=== PATIENT | male | born 1975 | race Two or more races ===

== ENCOUNTER 2020-09-29 09:17 | Emergency (ER) | payer MEDICAID ==
[~2020-09-29] VITALS: Ht 185.4 cm; Wt 75.9 kg
[~2020-09-29 09:17] MED LIST: HYDR-4383 PO
[2020-09-29] MEDS ORDERED: morphine 10mg/ml inj. IV ONE (10:15)
[2020-09-29] MEDS ORDERED: ampicillin/sulbac 3gm/NS 100ml 100 ML IV ONE (10:18)
--- NOTE | 2020-09-29 11:00 | NUR ---
report called to kaitlyn ng at [facility] sbar pt condition ,waiting on covid swab ,call back with covid results.
[2020-09-29 11:13] LABS: BASOPHILS # (AUTO) 0.1 X10'3 (0-0.2); BASOPHILS % (AUTO) 0.6 % (0-1); EOSINOPHILS # (AUTO) 0.2 X10'3 (0-0.9); EOSINOPHILS % (AUTO) 1.8 % (0-6); HEMATOCRIT 41.2 % (42.0-52.0); HEMOGLOBIN 13.7 g/dl (14.0-17.9); LYMPHOCYTES # (AUTO) 2.4 X10'3 (1.1-4.8); LYMPHOCYTES % (AUTO) 21.6 % (21-51); MEAN CORPUSCULAR HEMOGLOBIN 29.3 PG (27.0-31.0); MEAN CORPUSCULAR HGB CONC 33.3 g/dL (33.0-36.5); MEAN PLATELET VOLUME 7.1 FL (7.4-10.4); MONOCYTES # (AUTO) 0.9 X10'3 (0-0.9); MONOCYTES % (AUTO) 8.2 % (2-12); NEUTROPHILS # (AUTO) 7.7 X10'3 (1.8-7.7); NEUTROPHILS % (AUTO) 67.8 % (42-75); PLATELET COUNT 345 X10'3 (140-440); RED BLOOD COUNT 4.69 X10'6 (4.70-6.10); RED CELL DISTRIBUTION WIDTH 14.2 % (11.5-14.5); WHITE BLOOD COUNT 11.3 X10'3 (4.5-11.0)
--- NOTE | 2020-09-29 11:22 | NUR ---
notified dr blackburn for pt pain level after morphine inj 6 mg iv once ,pain 9/ ,new order to give dilaudid 1 mg iv onces and md is going to order.
[2020-09-29 11:25] LABS: ALBUMIN 3.3 G/DL (3.4-5.0); ANION GAP 9 (8-16); BLOOD UREA NITROGEN 16 MG/DL (7-18); CALCIUM 8.7 MG/DL (8.5-10.1); CHLORIDE 107 MMOL/L (99-107); GLUCOSE 106 MG/DL (70-104); POTASSIUM 3.9 MMOL/L (3.5-5.1); SODIUM 140 MMOL/L (135-145); TOTAL CARBON DIOXIDE 24.3 MMOL/L (24-32); eGFR 81 ML/MIN
[2020-09-29] MEDS ORDERED: HYDROmorphone 1 mg/ml syringe IV ONE (11:25)
[2020-09-29 11:54] VITALS: BP 134/76
== END 2020-09-29 11:58 | disposition short-term general hospital (02) ==
LOC: ER 09:17
DX: S02.69XB Fracture of mandible of other specified site, initial encounter for open fracture (principal); Z20.828 Contact with and (suspected) exposure to other viral communicable diseases; F12.90 Cannabis use, unspecified, uncomplicated; F15.90 Other stimulant use, unspecified, uncomplicated; F17.200 Nicotine dependence, unspecified, uncomplicated; Z90.49 Acquired absence of other specified parts of digestive tract; Z59.0 Homelessness; Z79.899 Other long term (current) drug therapy; W17.89XA Other fall from one level to another, initial encounter; Y93.31 Activity, mountain climbing, rock climbing and wall climbing; Y92.828 Other wilderness area as the place of occurrence of the external cause; Y99.8 Other external cause status
CPT/HCPCS: 36415; 70486; 71045; 80048; 85025; 85610; 87635; 96365; 96375; 99285; C9803; J1170; J2270; J0295

== ENCOUNTER 2025-06-10 07:20 | Emergency (ER) | payer MEDICAID ==
[~2025-06-10] VITALS: Ht 185.4 cm; Wt 75.0 kg
--- NOTE | 2025-06-10 08:43 | Physician Documentation ---
History of Present Illness ~ Chief Complaint: Wound Stated Complaint: L LEG SWELLING Time Seen by MD: 08:42 Primary Medical Doctor: Dr. JO Mode of Arrival: POV HPI 50 yr old male with meth use hx presents to the emergency department for signs of infection to a left lower leg. He reports that he scratches like a couple of days ago in some blackberry bushes, and has had spreading redness since. Notes that the leg is very painful. No fevers or chills. Tetanus within 5 years?: Yes Medication Reconciliation Allergies: Coded Allergies: No Known Allergies (Unverified , 12/16/09) Scheduled Cephalexin*Monohydrate* (Keflex*), 1 CAP PO QID Sulfamethoxazole/Trimethoprim (Bactrim Ds Tablet), 1 TAB PO Q12H Discontinued Medications Hydrocodone/Acetaminophen ([place] 5-325 Tablet), 1-2 TABLET PO Q4H Discontinued Reason: patient no longer taking Past Medical History Past Medical History: No Pertinent History Past Surgical History: appendectomy, tonsillectomy Alcohol Use: None Drug Use: marijuana, methamphetamine Lives with: Family Lives In: Home Review of Systems ROS As stated above in the HPI, otherwise all systems are reviewed and negative. Physical Exam Vital Signs: Temperature: 97.7, Source: Temporal, Heart Rate: 106, Respiratory Rate: 18, BP: 116/73, Pulse Oximetry: 99, Weight: 75.000 Oxygen Flow Rate: 0 Physical Exam General: Alert, no apparent distress. Neck: Full range of motion. Respiratory: Lungs clear, no respiratory distress. Chest: No accessory muscle use. Cardiovascular: Regular rate and rhythm, no murmurs. Gastrointestinal: Soft, nontender, nondistended. Bowels sounds present. Extremities: Normal range of motion, no deformity. LLE with 2+ erythema with numerous open areas/scratches noted. Neurologic: Oriented x4. Psychiatric: Normal mood and affect. Skin: Normal color, warm and dry. No edema, no ecchymosis. Progress Results/Orders Results/Orders Orders - YAMILETH GILLESPIE [employer] * Iv Access / Saline Lock * (06/10/25 08:54) Electrocardiogram (06/10/25 08:54) Urinalysis, Cult If Indicated (06/10/25 08:54) Culture Blood (06/10/25 08:54) Dressing Orders (06/10/25 10:41) Wound Care Orders (06/10/25 10:41) Completed Orders - YAMILETH GILLESPIE [employer] Normal Saline 1000ml (0.9% Sodium Chlori (06/10/25 08:55) Morphine 4mg/Ml Inj. (Morphine Inj.) (06/10/25 08:55) Electrocardiogram (06/10/25 08:54) Cbc/Diff (06/10/25 08:54) MG (06/10/25 08:54) Procalcitonin (06/10/25 08:54) BMP (06/10/25 08:54) Lacticsepsis (06/10/25 08:54) Liver Panel (06/10/25 08:54) Ceftriaxone 2gm/D5w 50ml Bag (Rocephin 2 (06/10/25 10:40) Tetanus/Pertuss/Diph Acell/Pf (Boostrix (06/10/25 10:45) Bacitracin Ointment (Bacitracin Ointment (06/10/25 10:45) Medications Received in ER Medications (Trade) Dose Ordered Sig/Suhas Route PRN Reason Start Time Stop Time Status Last Admin Dose Admin Sodium Chloride 1,000 ml @ 1,000 mls/hr ONCE ONCE IV 06/10/25 08:55 06/10/25 09:54 DC 06/10/25 09:16 1,000 MLS/HR (morphine inj.) 4 mg ONCE ONCE IV 06/10/25 08:55 06/10/25 08:56 DC 06/10/25 09:17 4 MG Ceftriaxone Sodium/Dextrose 50 ml @ 100 mls/hr ONCE ONCE IV 06/10/25 10:40 06/10/25 11:11 DC 06/10/25 11:01 100 MLS/HR (bacitracin ointment) 1 applic ONCE ONCE TP 06/10/25 10:45 06/10/25 10:46 DC 06/10/25 11:01 1 APPLIC Vital Signs 06/10/25 06/10/25 07:24 07:41 Temp 97.7 Pulse 106 Resp 16 18 B/P (MAP) 116/73 Pulse Ox 99 O2 Flow Rate 0 Laboratory Tests Test 06/10/25 09:15 White Blood Count 14.1 H Red Blood Count 4.62 L Hemoglobin 13.8 L Hematocrit 40.9 L Mean Corpuscular Volume 88.5 Mean Corpuscular Hemoglobin 29.9 Mean Corpuscular Hemoglobin Concent 33.8 Red Cell Distribution Width 14.3 Platelet Count 313 Mean Platelet Volume 7.7 Neutrophils (%) (Auto) 78.6 H Lymphocytes (%) (Auto) 11.2 L Monocytes (%) (Auto) 8.6 Eosinophils (%) (Auto) 1.1 Basophils (%) (Auto) 0.5 Neutrophils # (Auto) 11.1 H Lymphocytes # (Auto) 1.6 Monocytes # (Auto) 1.2 H Eosinophils # (Auto) 0.2 Basophils # (Auto) 0.1 CBC Comment Sodium Level 139 Potassium Level 4.0 Chloride Level 103 Carbon Dioxide Level 28.2 Anion Gap 8 Blood Urea Nitrogen 13 Creatinine 0.82 Estimated GFR/1.73 m2 > 90 BUN/Creatinine Ratio 15.9 Glucose Level 104 Lactic Acid Level 0.6 Calcium Level 8.7 Magnesium Level 2.0 Total Bilirubin 0.4 Direct Bilirubin 0.1 Aspartate Amino Transf (AST/SGOT) 16 Alanine Aminotransferase (ALT/SGPT) 20 Alkaline Phosphatase 57 Total Protein 6.8 Albumin 3.0 L Globulin 3.8 Albumin/Globulin Ratio 0.8 L Procalcitonin 0.58 H Chemistry Comments EKG/XRAY/CT/US/VASC/MRI EKG : Additional Comment 0858 EKG interpreted to show RSR rate of 94. No ectopy No ST segment elevation. QTC 469 ms. Medical Decision Making Differential Dx:Considerations: Include: Abscess, Cellulitis, Dressing change, Healing wound Additional Comment NO Signs of sepsis. Was treated in the emergency department 2 g of ceftriaxone IV, hydrated with 1 L of normal saline, treated for pain. He is to return if worse, otherwise he is to take the Bactrim and Keflex as prescribed. Departure Time of Disposition: 10:39 Disposition: 01 HOME / SELF CARE / HOMELESS Impression: Primary Impression: Wound cellulitis Condition: Stable Discharge Instructions: Cellulitis, Adult, How to Change Your Wound Dressing Additional Instructions: Antibiotics as prescribed. Return if worse. Follow up with the primary care within the week Referrals: NO PRIMARY CARE PROVIDER (PCP) Prescriptions Cephalexin*Monohydrate* (Keflex*) 500 Mg Capsule 1 CAP PO QID for 7 Days, #28 CAP Prov: YAMILETH GILLESPIE NP 06/10/25 Sulfamethoxazole/Trimethoprim (Bactrim Ds Tablet) 800 Mg-160 Mg Tablet 1 TAB PO Q12H for 7 Days, #14 TAB Prov: YAMILETH GILLESPIE NP 06/10/25 Education Educated: Patient, Family Educated regarding: diagnosis, treatment, prognosis, need for follow up Signature Scribe Signature: x Attestation: The note accurately reflects work and decisions made by me.Yamileth Franklin NP 06/10/25 11:12 YAMILETH GILLESPIE NP Jun 10, 2025 08:43
--- NOTE | 2025-06-10 09:01 | ELECTROCARDIOGRAPH REPORT ---
[facility]– [place] Date: 2025-06-10 Test Time: 08:58:43 Pat Name: WILLIAM MACKEY Department: [facility]- Patient ID: [id number] Room: Gender: M [employer]: : 1975 Requested By: YAMILETH GILLESPIE Order Number: [id number] Reading MD: Dr. Jae Ramon Measurements Intervals [place] Rate: 94 P: 71 MD: 154 QRS: 90 QRSD: 100 T: 52 QT: 375 QTc: 469 Interpretive Statements Sinus rhythm Borderline right axis deviation Electronically Signed On 06-10-2025 9:40:[address] Jae Ramon Please click the below link to view image of tracing.
[2025-06-10] MEDS: normal saline 1000ml 1,000 ML IV ONE (09:16)
[2025-06-10] MEDS: morphine 4 MG/ML inj SYRINge IV ONE (09:17)
[2025-06-10 09:55] LABS: MEAN PLATELET VOLUME 7.7 FL (7.4-10.4); RED CELL DISTRIBUTION WIDTH 14.3 % (11.5-14.5)
[2025-06-10 10:16] LABS: CREATININE 0.82 MG/DL (0.60-1.10); TOTAL CARBON DIOXIDE 28.2 MMOL/L (24-32); eCRCL 116 ML/MIN; eGFR > 90 ML/MIN
[2025-06-10] MEDS ORDERED: CEPH-585 PO (10:40)
[2025-06-10] MEDS ORDERED: SULF1TAB49 PO (10:40)
[2025-06-10] MEDS: bacitracin 15gm ointment TP ONE (11:01)
[2025-06-10] MEDS: CefTRIAXone 2gm/D5W 50ml BAG 50 ML IV ONE (11:01)
[2025-06-10] MEDS: TETanus/Pertussis (Acell)/Diphther VAC/PF (Tdap-Adult) 0.5ml syringe IMVAC ONE (11:02)
[2025-06-10 11:10] VITALS: BP 124/78; PULSE 97; RESP 18; TEMP 98.4; O2SAT 98
== END 2025-06-10 11:15 | disposition home or self-care (01) ==
LOC: ER 07:20
DX: L03.116 Cellulitis of left lower limb (principal); F12.90 Cannabis use, unspecified, uncomplicated; F15.90 Other stimulant use, unspecified, uncomplicated; Z90.49 Acquired absence of other specified parts of digestive tract; Z79.899 Other long term (current) drug therapy
CPT/HCPCS: 36415; 80048; 80076; 83605; 83735; 84145; 85025; 87040; 93005; 96361; 96365; 96375; 99284; J0696; J2270; J7030; A6258; A6446